=== PATIENT | female | born 1985 | race Caucasian/White ===

== ENCOUNTER 2017-06-17 21:10 | Emergency (ER) | payer OTHER ==
[~2017-06-17] VITALS: Ht 170.2 cm; Wt 60.0 kg
[2017-06-17 21:20] VITALS: BP 123/75
== END 2017-06-17 22:50 | disposition home or self-care (01) ==
LOC: ED 22:28
DX: F12.10 Cannabis abuse, uncomplicated (principal)
CPT/HCPCS: 99283